=== PATIENT | female | born 1985 | race Caucasian/White ===

== ENCOUNTER 2017-12-17 11:20 | Emergency (ER) | payer BC ==
--- NOTE | 2017-12-17 11:39 | ER Document Report ---
HPI - HPI Patient complains to provider of: Cough Onset: Other - Several months Pain Level: 2 Context: 32-year-old female from [place] that has lived in the [place] for 1 year and had a negative PPD test 1 year ago has cough for 2 months. She quit smoking but is now very being flavor. She has been treated several times and had several negative chest x-rays by her primary care doctor but coughs up yellow sputum or occasionally blood. She called her primary care doctor who sent her to the emergency room for further testing. No chest pain or shortness of breath. Past Medical History - General Information source: Patient - Social History Smoking Status: Current Every Day Smoker - vapor flavor Frequency of alcohol use: None Drug Abuse: None Lives with: Spouse/Significant other Family History: Reviewed & Not Pertinent - Medical History Medical History: Negative Surgical Hx: Negative Vertical Provider Document - CONSTITUTIONAL Agree With Documented VS: Yes Exam Limitations: No Limitations General Appearance: No Apparent Distress - HEENT HEENT: Normal ENT Exam - NECK Neck: Supple. negative: Lymphadenopathy-Left, Lymphadenopathy-Right - RESPIRATORY Respiratory: Breath Sounds Normal, No Respiratory Distress - CARDIOVASCULAR Cardiovascular: Regular Rate, Regular Rhythm - GI/ABDOMEN Gastrointestinal: Abdomen Soft, Abdomen Non-Tender, No Organomegaly - MUSCULOSKELETAL/EXTREMETIES Musculoskeletal/Extremeties: MAVALENTINO FROM - NEURO Level of Consciousness: Awake Motor/Sensory: No Motor Deficit, No Sensory Deficit - DERM Integumentary: No Rash Course - Re-evaluation Re-evalutation: 12/17/17 13:14 Chest x-ray is negative per radiologist, the albuterol did not make a difference. She is still sleeping with a flavor and we discussed stopping that and following up with her primary care doctor if the symptoms persist they might want to get a CT scan of the sinuses or chest. I will also give her a referral to [facility] which they are asking for 12/17/17 13:17 - Vital Signs Vital signs: Temp Pulse Resp BP Pulse Ox 99.3 F 82 16 125/83 98 12/17/17 11:24 12/17/17 11:24 12/17/17 11:24 12/17/17 11:24 12/17/17 11:24 Discharge - Discharge Clinical Impression: Bronchitis Condition: Good Disposition: HOME, SELF-CARE Instructions: Bronchitis ([facility]) Additional Instructions: See your primary care doctor she may want to order further testing of the sinuses or chest Copy of the negative imaging done today Return to the emergency room for any fever chills shortness of breath weight loss or chest pain Referral to [employer] Stop using vapor Referrals: FLORINA LOPES MD [ACTIVE STAFF] - Follow up as needed
[2017-12-17] MEDS ORDERED: ALBUTEROL SULFATE 0.083% NEB 2.5 MG/3 ML AMPUL NEB ONE (12:09)
--- NOTE | 2017-12-17 12:40 | RADIOLOGY REPORT (SQ) ---
EXAM DESCRIPTION: CHEST 2 VIEWS COMPLETED DATE/TIME: 12/17/2017 12:25 pm REASON FOR STUDY: cough for 2 months COMPARISON: None. EXAM PARAMETERS: NUMBER OF VIEWS: two views TECHNIQUE: Digital Frontal and Lateral radiographic views of the chest acquired. RADIATION DOSE: NA LIMITATIONS: none FINDINGS: LUNGS AND PLEURA: No opacities, masses or pneumothorax. No pleural effusion. MEDIASTINUM AND HILAR STRUCTURES: No masses or contour abnormalities. HEART AND VASCULAR STRUCTURES: Heart normal size. No evidence for failure. BONES: No acute findings. HARDWARE: None in the chest. OTHER: No other significant finding. IMPRESSION: NO ACUTE RADIOGRAPHIC FINDING IN THE CHEST. TECHNICAL DOCUMENTATION: JOB ID: [id number] [employer]- All Rights Reserved Reading location - IP/workstation name: [email or web address]
[2017-12-17 13:26] VITALS: BP 120/88
== END 2017-12-17 13:26 | disposition home or self-care (01) ==
LOC: ER 11:20
DX: J40 Bronchitis, not specified as acute or chronic (principal); R05 Cough; F17.290 Nicotine dependence, other tobacco product, uncomplicated
CPT/HCPCS: 71046; 94640; 99283

== ENCOUNTER → 2019-11-22 | Outpatient (CLI) | payer BC ==
--- NOTE | 2019-11-22 14:43 | RADIOLOGY REPORT (SQ) ---
EXAM DESCRIPTION: HYSTEROSALPINGOGRAM; HYSTERO CATH/INJECTION IMAGES COMPLETED DATE/TIME: 11/22/2019 1:37 pm REASON FOR STUDY: FEMALE INFERTILITY, UNSPECIFIED (N97.9) N97.9 FEMALE INFERTILITY, UNSPECIFIED COMPARISON: None. PROCEDURE: PRE-PROCEDURE: Procedure was explained to the patient. She was told to expect cramping du ring the procedure, and possible spotting post procedure. PROCEDURE: The cervix was prepped in sterile fashion. Under direct visual inspection, the cervix was cannulated with the hysterosalpingogram catheter and contrast injected. TECHNIQUE: Temporal fluoroscopic images acquired during the procedure stored to PACS. FLUOROSCOPY TIME: 27 seconds 6 images saved to PACS. LIMITATIONS: None. FINDINGS: UTERUS: No identified anomalies. No synechia. RIGHT ADNEXA: Normal size fallopian tube. Free spill of contrast into the peritoneal cavity. LEFT ADNEXA: Normal size fallopian tube. Free spill of contrast into the peritoneal cavity. POST PROCEDURE: The patient tolerated the procedure with no adverse effects. IMPRESSION: NORMAL HYSTEROSALPINGOGRAM. COMMENT: There was an adhesion with initial difficulty positioning catheter through the cervix. Study performed by and interpreted by the radiologist. Quality ID 145: Final reports for procedures using fluoroscopy that document radiation exposure leo madelin, or exposure time and number of fluorographic images (if radiation exposure indices are not avail able) TECHNICAL DOCUMENTATION: JOB ID: [id number] 2010 [employer]- All Rights Reserved Reading location - IP/workstation name: [email or web address]
--- NOTE | 2019-11-22 14:43 | RADIOLOGY REPORT (SQ) ---
EXAM DESCRIPTION: HYSTEROSALPINGOGRAM; HYSTERO CATH/INJECTION IMAGES COMPLETED DATE/TIME: 11/22/2019 1:37 pm REASON FOR STUDY: FEMALE INFERTILITY, UNSPECIFIED (N97.9) N97.9 FEMALE INFERTILITY, UNSPECIFIED COMPARISON: None. PROCEDURE: PRE-PROCEDURE: Procedure was explained to the patient. She was told to expect cramping du ring the procedure, and possible spotting post procedure. PROCEDURE: The cervix was prepped in sterile fashion. Under direct visual inspection, the cervix was cannulated with the hysterosalpingogram catheter and contrast injected. TECHNIQUE: Temporal fluoroscopic images acquired during the procedure stored to PACS. FLUOROSCOPY TIME: 27 seconds 6 images saved to PACS. LIMITATIONS: None. FINDINGS: UTERUS: No identified anomalies. No synechia. RIGHT ADNEXA: Normal size fallopian tube. Free spill of contrast into the peritoneal cavity. LEFT ADNEXA: Normal size fallopian tube. Free spill of contrast into the peritoneal cavity. POST PROCEDURE: The patient tolerated the procedure with no adverse effects. IMPRESSION: NORMAL HYSTEROSALPINGOGRAM. COMMENT: There was an adhesion with initial difficulty positioning catheter through the cervix. Study performed by and interpreted by the radiologist. Quality ID 145: Final reports for procedures using fluoroscopy that document radiation exposure leo madelin, or exposure time and number of fluorographic images (if radiation exposure indices are not avail able) TECHNICAL DOCUMENTATION: JOB ID: [id number] 2010 [employer]- All Rights Reserved Reading location - IP/workstation name: [email or web address]
== END ==
LOC: RAD 12:38
PROVIDERS: ATTEND Student in an Organized Health Care Education/Training Program
DX: N97.9 Female infertility, unspecified (principal)
CPT/HCPCS: 58340; 74740

== ENCOUNTER 2020-01-14 13:37 | Emergency (ER) | payer BC ==
--- NOTE | 2020-01-14 18:15 | ER Document Report ---
ED General - General Chief Complaint: Other Stated Complaint: SPITTING UP BLOOD Time Seen by Provider: 01/14/20 17:10 Primary Care Provider: AMBER BELTRAN MD [Primary Care Provider] - Follow up as needed - HPI Notes: Chief complaint: Hemoptysis History of present illness: Previously healthy 34-year-old female cigarette smoker taking no regular medications with no known allergies reports that she co ughed up a few "streaks of blood" which she feels came from the back of her throat 2 days ago. She took a picture of this and shows me the picture on her cell phone. She has had no recurrence since then but has some postnasal drainage and some mild irritation of her throat. She denies fever or chills. She denies weight loss. She denies prior hospitalizations. She denies known exposure to COVID or recent travel outside the area. - Related Data Allergies/Adverse Reactions: No Known Allergies Allergy (Verified 01/14/20 18:38) Past Medical History - General Information source: Patient - Social History Smoking Status: Current Every Day Smoker Frequency of alcohol use: Social Drug Abuse: None Family History: Reviewed & Not Pertinent - Medical History Medical History: Negative Renal/ Medical History: Denies: Hx Peritoneal Dialysis Past Surgical History: Reports: Hx Section Review of Systems - Review of Systems Notes: Constitutional: Negative for fever. HENT: As per HPI. Eyes: Negative for visual changes. Cardiovascular: Negative for chest pain. Respiratory: Negative for shortness of breath. Gastrointestinal: Negative for abdominal pain, vomiting or diarrhea. Genitourinary: Negative for dysuria. Musculoskeletal: Negative for back pain. Skin: Negative for rash. Neurological: Negative for headaches, weakness or numbness. 10 point ROS negative except as marked above and in HPI. Physical Exam - Vital signs Vitals: Temp Pulse Resp BP Pulse Ox 99.4 F 73 16 129/86 H 99 01/14/20 14:21 01/14/20 14:21 01/14/20 14:21 01/14/20 14:21 01/14/20 14:21 - Notes Notes: GENERAL: Slender female approximately stated age appearing in no acute distress. SKIN: Good turgor no rashes. HEAD: Mild diffuse sinus tenderness to percussion. Normocephalic atraumatic. EYES: PERRLA. EOMI. Conjunctivae and sclerae clear. EARS: CANALS AND TMS CLEAR. NOSE: CLEAR. MOUTH: Moist mucosa. Good dentition. No stridor or edema. No drooling. Throat: Thick postnasal drainage present. Mild injection of the pharynx. NECK: Supple. No masses or thyromegaly. No adenopathy. Carotids 2+ without bruits. No JVD. BACK: Symmetrical without tenderness. CHEST: Respirations unlabored. Breath sounds clear and symmetrical. HEART: Regular rhythm. No murmur gallop or rub. ABDOMEN: Soft nontender without masses, organomegaly or rebound. Bowel sounds normally active. No bruits. GENITALIA: Deferred. EXTREMITIES: No edema. No calf tenderness. Cap refill less than 1.5 seconds. Dorsalis pedis and posterior tibial pulses 3+ and symmetrical. NEUROLOGICAL: GCS 15. Alert and oriented x3. Normal gait. Fluent speech. Cranial nerves II through XII intact. Sensorimotor and cerebellar normal. Normal tone. PSYCHIATRIC: Appropriate affect. Course - Re-evaluation Re-evalutation: 01/14/20 19:05 Clinically the patient has a sinusitis and she is a heavy cigarette smoker. Chest x-ray is normal. I think the blood that she expectorated probably came from her posterior pharynx. Advised her to stop smoking cigarettes some and put her on some doxycycline for 10 days. - Vital Signs Vital signs: Temp Pulse Resp BP Pulse Ox 99.4 F 73 16 129/86 H 99 01/14/20 17:00 01/14/20 14:21 01/14/20 14:21 01/14/20 14:21 01/14/20 14:21 - Diagnostic Test Radiology reviewed: Image reviewed - Normal portable chest x-ray. Discharge - Discharge Clinical Impression: Acute sinusitis, Cigarette smoking Condition: Stable Disposition: HOME, SELF-CARE Additional Instructions: Stop smoking. Take prescribed medication as directed. Follow-up with your doctor within the next 7 to 10 days. You may return here as needed for new or worsening symptoms. Prescriptions: Doxycycline Monohydrate 100 mg PO BID #20 capsule Forms: Smoking Cessation Education Referrals: AMBER BELTRAN MD [Primary Care Provider] - Follow up as needed
--- NOTE | 2020-01-14 19:03 | RADIOLOGY REPORT (SQ) ---
EXAM DESCRIPTION: CHEST SINGLE VIEW IMAGES COMPLETED DATE/TIME: 01/14/2020 6:53 pm REASON FOR STUDY: hemoptysis COMPARISON: 12/17/2017 EXAM PARAMETERS: NUMBER OF VIEWS: One view. TECHNIQUE: Single frontal radiographic view of the chest acquired. RADIATION DOSE: NA LIMITATIONS: None. FINDINGS: LUNGS AND PLEURA: No opacities, masses or pneumothorax. No pleural effusion. MEDIASTINUM AND HILAR STRUCTURES: No masses. Contour normal. HEART AND VASCULAR STRUCTURES: Heart normal in size. Normal vasculature. BONES: No acute findings. HARDWARE: None in the chest. OTHER: No other significant finding. IMPRESSION: 1. No significant interval changes since the prior examination dated 12/17/2017. No acu te findings. TECHNICAL DOCUMENTATION: JOB ID: [id number] 2010 [employer]- All Rights Reserved Reading location - IP/workstation name: [email or web address]
[2020-01-14 19:30] VITALS: BP 130/70
== END 2020-01-14 19:39 | disposition home or self-care (01) ==
LOC: ER 13:37
DX: J01.90 Acute sinusitis, unspecified (principal); R04.2 Hemoptysis; R09.89 Other specified symptoms and signs involving the circulatory and respiratory systems; F17.200 Nicotine dependence, unspecified, uncomplicated
CPT/HCPCS: 71045; 99283